=== PATIENT | male | born 1970 | race Caucasian/White ===

== ENCOUNTER 2021-09-01 07:58 | Day surgery (SDC) | payer OTHER ==
[~2021-09-01] VITALS: Ht 188 cm; Wt 139.6 kg
[~2021-09-01 07:58] MED LIST: LIDOCAINE 2% 100MG/5ML SDV (FOR ANES.) As Ordered ONE; NS 1,000 ML IV ONE; PAPATAB3 PO; RA T500C2 PO; VITA-243 PO; VITA100093 PO; propofoL 200 MG/20 ML VIAL As Ordered ONE
[2021-09-01 10:19] VITALS: BP 128/79
== END 2021-09-01 10:20 | disposition home or self-care (01) ==
LOC: M OPP 07:58
PROVIDERS: ATTEND Internal Medicine Gastroenterology
DX: Z12.11 Encounter for screening for malignant neoplasm of colon (principal); Z86.010 Personal history of colon polyps; D12.0 Benign neoplasm of cecum; K64.0 First degree hemorrhoids; Z91.010 Allergy to peanuts